=== PATIENT | male | born 1985 | race Caucasian/White ===

== ENCOUNTER 2023-11-05 10:09 | Emergency (ER) | payer BC, MEDICAID ==
[~2023-11-05] VITALS: Ht 175.3 cm; Wt 70.3 kg
[2023-11-05 10:15] VITALS: BP 119/85; PULSE 92; RESP 16; TEMP 98; O2SAT 97
[2023-11-05 10:48] LABS: BASOPHILS % (AUTO) 1.1 % (0.0-2.0); EOSINOPHILS # (AUTO) 0.1 K/uL (0-0.4); EOSINOPHILS % (AUTO) 2.3 % (0.0-4.0); HEMATOCRIT 37.9 % (36-52); HEMOGLOBIN 12.3 g/dL (12.0-18.0); LYMPHOCYTES # (AUTO) 1.5 K/uL (2.0-11.5); MEAN CORPUSCULAR HEMOGLOBIN 31 pg (27-31); MEAN CORPUSCULAR HGB CONC 33 g/dL (33-37); MONOCYTES # (AUTO) 0.3 K/uL (0.8-1.0); MONOCYTES % (AUTO) 9.6 % (1.7-9.3); NEUTROPHILS # (AUTO) 1.1 K/uL (1.8-7.7); PLATELET COUNT (AUTO) 122 K/uL (140-450); RED BLOOD CELL COUNT(AUTO) 4.03 MIL/uL (4.20-6.10); RED CELL DISTRIBUTION WIDTH 15.8 % (11.6-13.7)
[2023-11-05 11:07] LABS: ANION GAP 10.1 (8-16); CALCIUM 9.1 mg/dL (8.5-10.1); CREATININE 0.8 mg/dL (0.6-1.3); POTASSIUM 4.1 mmol/L (3.5-5.1)
[2023-11-05 11:12] LABS: ALBUMIN 3.4 g/dL (3.4-5.0); BILIRUBIN,DIRECT 0.1 mg/dL (0.0-0.3); TOTAL BILIRUBIN 0.2 mg/dL (0.0-1.0); TOTAL PROTEIN, SERUM 7.8 g/dL (6.4-8.2)
[2023-11-05 11:29] LABS: APPEARANCE,URINE CLEAR (CLEAR); BILIRUBIN,URINE NEGATIVE (NEGATIVE); BLOOD, URINE NEGATIVE (NEGATIVE); COLOR,URINE YELLOW (YELLOW); LEUKOCYTE ESTERASE ,URINE NEGATIVE (NEGATIVE); NITRITE, URINE NEGATIVE (NEGATIVE); PH,URINE 7.5 (5.0-9.0); PROTEIN,URINE NEGATIVE (NEGATIVE); UGLUCOSE NEGATIVE (NEGATIVE); UROBILINOGEN,URINE 0.2 EU/dL (0.2 - 1)
[2023-11-05 12:09] VITALS: BP 129/93; PULSE 79; RESP 17; O2SAT 97
== END 2023-11-05 12:12 | disposition home or self-care (01) ==
LOC: MED 10:09
DX: R53.1 Weakness (principal); R05.9 Cough, unspecified; I10 Essential (primary) hypertension; Z86.69 Personal history of other diseases of the nervous system and sense organs
CPT/HCPCS: 36415; 71045; 80048; 80076; 81003; 85025; 99284; Q0092

== ENCOUNTER 2023-11-23 09:38 | Emergency (ER) | payer BC ==
[~2023-11-23] VITALS: Ht 172.7 cm; Wt 77.1 kg
[2023-11-23 09:47] VITALS: BP 144/96; PULSE 112; RESP 15; TEMP 97.9; O2SAT 97
[2023-11-23 12:24] VITALS: BP 134/97; PULSE 90; RESP 15; TEMP 97.9; O2SAT 99
== END 2023-11-23 12:24 | disposition home or self-care (01) ==
LOC: MED 09:38
DX: S09.90XA Unspecified injury of head, initial encounter (principal); I10 Essential (primary) hypertension; Z86.69 Personal history of other diseases of the nervous system and sense organs; W17.89XA Other fall from one level to another, initial encounter; Y93.89 Activity, other specified; Y92.89 Other specified places as the place of occurrence of the external cause; Y99.8 Other external cause status
CPT/HCPCS: 70450; 99284

== ENCOUNTER 2023-12-16 10:42 | Inpatient (IN) | payer BC ==
[~2023-12-16] VITALS: Ht 175.3 cm; Wt 77.3 kg
[2023-12-16] VITALS (9 sets, daily range): BP systolic 7–136; BP diastolic 37–87; PULSE 74–109; RESP 15–20; TEMP 98.5; O2SAT 88–100
[2023-12-16 11:45] LABS: BASOPHILS % (AUTO) 0.3 % (0.0-2.0); EOSINOPHILS % (AUTO) 0.8 % (0.0-4.0); HEMATOCRIT 39.9 % (36-52); HEMOGLOBIN 13.1 g/dL (12.0-18.0); LYMPHOCYTES # (AUTO) 1.2 K/uL (2.0-11.5); LYMPHOCYTES % (AUTO) 22.5 % (20.5-51.1); MEAN CORPUSCULAR HEMOGLOBIN 31 pg (27-31); MEAN CORPUSCULAR HGB CONC 33 g/dL (33-37); MEAN CORPUSCULAR VOLUME 93.3 fL (80-94); MONOCYTES # (AUTO) 0.6 K/uL (0.8-1.0); MONOCYTES % (AUTO) 11.3 % (1.7-9.3); NEUTROPHILS # (AUTO) 3.6 K/uL (1.8-7.7); NEUTROPHILS % (AUTO) 65.1 % (42.2-75.2); PLATELET COUNT (AUTO) 112 K/uL (140-450); RED BLOOD CELL COUNT(AUTO) 4.27 MIL/uL (4.20-6.10); RED CELL DISTRIBUTION WIDTH 15.1 % (11.6-13.7); WHITE BLOOD COUNT (AUTO) 5.5 K/uL (4.8-10.8)
[2023-12-16 12:16] LABS: BLOOD GAS PCO2 83.6 mmHg (35.0-48.0); BLOOD GAS PH 7.296 (7.350-7.450)
[2023-12-16 12:17] LABS: BLOOD GAS BASE EXCESS 9.9 mmol/L (-2.0-3.0); BLOOD GAS HCO3 39.8 mmol/L (21.0-28.0); BLOOD GAS O2 SAT% 93.8 % (94.0-98.0); BLOOD GAS PO2 78.6 mmHg (83.0-108.0)
[2023-12-16 12:19] LABS: ALANINE AMINOTRANSFERASE 37 U/L (12-78); ALBUMIN 3.1 g/dL (3.4-5.0); ALKALINE PHOSPHATASE 72 U/L (50-136); ANION GAP 6.7 (8-16); ASPARTATE AMINOTRANSFERASE 20 U/L (15-37); CALCIUM 9.1 mg/dL (8.5-10.1); CARBON DIOXIDE 36.7 mmol/L (21-32); CHLORIDE 95 mmol/L (98-107); CREATININE 0.6 mg/dL (0.6-1.3); GFR ARICAN-AMERICAN 194 mL/min (>90); GFR NON ARICAN-AMERICAN 160 mL/min (>90); GLUCOSE 92 mg/dL (74-106); POTASSIUM 4.4 mmol/L (3.5-5.1); SODIUM SERUM 134 mmol/L (136-145); TOTAL BILIRUBIN 0.3 mg/dL (0.0-1.0); TOTAL PROTEIN, SERUM 7.6 g/dL (6.4-8.2); UREA NITROGEN, BLOOD 7 mg/dL (7-18)
[2023-12-16] MEDS: ALBUTEROL SULFATE/IPRATROPIU 3 ML SOL IH ONE (16:45)
[2023-12-16] MEDS: LORazepam 2 MG/ML VIAL IM ONE (17:14)
[2023-12-16] MEDS: LORazepam 2 MG/ML VIAL IVP ONE ×2 (17:27→17:35)
[2023-12-16] MEDS ORDERED: INTUBATION KIT MC ONE (17:41)
[2023-12-16] MEDS: VANCOMYCIN 1,000 MG in DEXTROSE 5% 250 ML IV ONE (18:05)
[2023-12-16] MEDS: ROCURONIUM 50 MG/5 ML VIAL IV ONE (18:10)
[2023-12-16] MEDS: ETOMIDATE 20 MG/10 ML VIAL IVP ONE (18:11)
[2023-12-16] MEDS: NACL 0.9% 1,000 ML IV ONE (18:12)
[2023-12-16] MEDS ORDERED: POTASSIUM CHLORIDE 10 MEQ TABER PO PRN (18:25)
[2023-12-16] MEDS ORDERED: KCL 20 MEQ IN 100 mL PREMIX 200 ML IV PRN (18:25)
[2023-12-16] MEDS ORDERED: ONDANSETRON 4 MG/2 ML VIAL IVP PRN (18:25)
[2023-12-16] MEDS ORDERED: ACETAMINOPHEN 325 MG TAB PO PRN (18:25)
[2023-12-16] MEDS ORDERED: HYDROcodone/APAP 5/325 MG 1 TAB TAB PO PRN (18:25)
[2023-12-16] MEDS: DEXMEDETOMIDINE HCL 400 MCG in NACL 0.9% 96 ML IV STA (18:32)
[2023-12-16] MEDS ORDERED: QUET100T PO (19:17)
[2023-12-16] MEDS ORDERED: KEP500 PO (19:17)
[2023-12-16] MEDS ORDERED: SYN.1 PO (19:17)
[2023-12-16] MEDS ORDERED: OMEP20EC11 PO (19:17)
[2023-12-16] MEDS ORDERED: DIVA125E1 (19:17)
[2023-12-16] MEDS ORDERED: PIPERACILLIN/TAZOBACTAM 4.5 GM VIAL IV ONE (19:23)
[2023-12-16] MEDS: PIPERACILLIN/TAZOBACTAM 4.5 GM in DEXTROSE 5% 100 ML IV ONE (19:25)
[2023-12-16] MEDS ORDERED: BENA20TA PO (19:28)
[2023-12-16] MEDS ORDERED: AZITHROMYCIN 500 MG INJ VIAL IV ONE (19:59)
[2023-12-16] MEDS: NACL 0.9% 1,000 ML IV SCH (20:02)
[2023-12-16] MEDS: AZITHROMYCIN 500 MG in DEXTROSE 5% 250 ML IV ONE (20:20)
[2023-12-16] MEDS ORDERED: AZITHROMYCIN 500 MG in DEXTROSE 5% 250 ML IV SCH (21:00)
[2023-12-16 21:19] LABS: BLOOD GAS PH 7.465 (7.350-7.450)
[2023-12-16 21:20] LABS: BLOOD GAS BASE EXCESS 9.7 mmol/L (-2.0-3.0); BLOOD GAS PCO2 49.8 mmHg (35.0-48.0); BLOOD GAS PO2 53.7 mmHg (83.0-108.0)
[2023-12-16 21:21] LABS: BLOOD GAS O2 SAT% 88.1 % (94.0-98.0)
[2023-12-16] MEDS ORDERED: COMMUNICATION ORDER MC PRN (21:55)
[2023-12-16] MEDS: VANCOMYCIN 1,000 MG VIAL ONE (22:09)
[2023-12-16] MEDS: cefTRIAXone 1,000 MG VIAL ONE (22:20)
[2023-12-16] MEDS: MIDAZOLAM MDV 50 MG/10 ML VIAL IV ONE (23:43)
[2023-12-17] VITALS (32 sets, daily range): BP systolic 85–174; BP diastolic 53–112; PULSE 48–110; RESP 15–16; TEMP 92–97.6; O2SAT 96–100
[2023-12-17] MEDS: ALBUTEROL SULFATE/IPRATROPIU 3 ML SOL IH SCH (00:28)
[2023-12-17] MEDS: MIDAZOLAM MDV 50 MG in NACL 0.9% 40 ML IV PRN (01:40)
[2023-12-17] MEDS: DEXMEDETOMIDINE HCL 100 MCG/ML 2 ML VIAL IV ONE (03:44)
[2023-12-17] MEDS: DEXMEDETOMIDINE HCL 400 MCG in NACL 0.9% 96 ML IV PRN (03:53)
[2023-12-17 05:43] LABS: BASOPHILS % (AUTO) 0.2 % (0.0-2.0); EOSINOPHILS % (AUTO) 0.1 % (0.0-4.0); HEMATOCRIT 35.7 % (36-52); HEMOGLOBIN 11.7 g/dL (12.0-18.0); LYMPHOCYTES # (AUTO) 0.7 K/uL (2.0-11.5); LYMPHOCYTES % (AUTO) 9.3 % (20.5-51.1); MEAN CORPUSCULAR HEMOGLOBIN 30 pg (27-31); MEAN CORPUSCULAR HGB CONC 33 g/dL (33-37); MEAN CORPUSCULAR VOLUME 92.2 fL (80-94); MONOCYTES # (AUTO) 0.7 K/uL (0.8-1.0); MONOCYTES % (AUTO) 8.5 % (1.7-9.3); NEUTROPHILS # (AUTO) 6.4 K/uL (1.8-7.7); NEUTROPHILS % (AUTO) 81.9 % (42.2-75.2); PLATELET COUNT (AUTO) 109 K/uL (140-450); RED BLOOD CELL COUNT(AUTO) 3.87 MIL/uL (4.20-6.10); RED CELL DISTRIBUTION WIDTH 15.1 % (11.6-13.7); WHITE BLOOD COUNT (AUTO) 7.8 K/uL (4.8-10.8)
[2023-12-17 06:11] LABS: ANION GAP 8.1 (8-16); CALCIUM 8.9 mg/dL (8.5-10.1); CARBON DIOXIDE 31.8 mmol/L (21-32); CREATININE 0.6 mg/dL (0.6-1.3); POTASSIUM 3.9 mmol/L (3.5-5.1)
[2023-12-17] MEDS: LEVOTHYROXINE 0.1 MG TAB PO SCH (06:21)
[2023-12-17 06:24] LABS: MAGNESIUM 1.5 mg/dL (1.8-2.4); PHOSPHORUS 2.4 mg/dL (2.5-4.9)
[2023-12-17] MEDS: MAG SULF 2000 MG/WATER PREMIX 50 ML IV PRN (06:48)
[2023-12-17] MEDS ORDERED: DIVALPROEX SPRINKLES 125 MG CAPDR NG/PO SCH (07:00)
[2023-12-17] MEDS: QUEtiapine FUMARATE 100 MG TAB PO SCH (08:50)
[2023-12-17] MEDS: levETIRAcetam 500 MG TAB PO SCH (08:50)
[2023-12-17] MEDS: PANTOPRAZOLE 40 MG TABEC PO SCH (08:51)
[2023-12-17] MEDS: DIVALPROEX SPRINKLES 125 MG CAPDR NG/PO SCH (08:53)
[2023-12-17] MEDS ORDERED: NON-FORMULARY ITEM (Omeprazole* (Prilosec*) 20 MG) PO SCH (09:00)
[2023-12-17] MEDS ORDERED: ENOXAPARIN 40 MG/0.4 ML SYR SUBQ SCH (09:00)
[2023-12-17] MEDS ORDERED: NACL IV SCH (12:00)
[2023-12-17] MEDS ORDERED: POTASSIUM PHOSPHATE IV SCH (12:00)
[2023-12-17] MEDS: POTASSIUM PHOSPHATE 15 MM in NACL 0.9% 250 ML IV SCH (13:19)
[2023-12-17] MEDS ORDERED: ALBUTEROL SULFATE/IPRATROPIU 3 ML SOL IH PRN (16:00)
[2023-12-17] MEDS: AZITHROMYCIN 500 MG in DEXTROSE 5% 250 ML IV SCH (21:01)
[2023-12-18] VITALS (33 sets, daily range): BP systolic 84–126; BP diastolic 47–88; PULSE 46–111; RESP 12–19; TEMP 95.4–98.2; O2SAT 94–100
[2023-12-18] MEDS: MORPHINE SULFATE 4 MG/ML SYR IVP PRN (01:48)
[2023-12-18] MEDS: DEXMEDETOMIDINE HCL 100 MCG/ML 2 ML VIAL IV ONE (03:44)
[2023-12-18 05:13] LABS: BASOPHILS % (AUTO) 0.2 % (0.0-2.0); EOSINOPHILS % (AUTO) 0.2 % (0.0-4.0); HEMATOCRIT 33.7 % (36-52); LYMPHOCYTES # (AUTO) 0.5 K/uL (2.0-11.5); LYMPHOCYTES % (AUTO) 7.2 % (20.5-51.1); MEAN CORPUSCULAR HEMOGLOBIN 30 pg (27-31); MEAN CORPUSCULAR HGB CONC 33 g/dL (33-37); MEAN CORPUSCULAR VOLUME 91.6 fL (80-94); MONOCYTES # (AUTO) 0.5 K/uL (0.8-1.0); MONOCYTES % (AUTO) 7.2 % (1.7-9.3); NEUTROPHILS # (AUTO) 5.4 K/uL (1.8-7.7); NEUTROPHILS % (AUTO) 85.2 % (42.2-75.2); PLATELET COUNT (AUTO) 123 K/uL (140-450); RED BLOOD CELL COUNT(AUTO) 3.67 MIL/uL (4.20-6.10); RED CELL DISTRIBUTION WIDTH 15.1 % (11.6-13.7); WHITE BLOOD COUNT (AUTO) 6.3 K/uL (4.8-10.8)
[2023-12-18 05:47] LABS: ANION GAP 8.7 (8-16); CALCIUM 8.7 mg/dL (8.5-10.1); CARBON DIOXIDE 30.3 mmol/L (21-32); CREATININE 0.7 mg/dL (0.6-1.3)
[2023-12-18 06:00] LABS: MAGNESIUM 1.7 mg/dL (1.8-2.4); PHOSPHORUS 4.3 mg/dL (2.5-4.9)
[2023-12-18] MEDS: levETIRAcetam 100 MG/ML ORASYR GT SCH (20:09)
[2023-12-18] MEDS: MAGNESIUM OXIDE 400 MG TAB PO PRN (21:04)
[2023-12-19] VITALS (33 sets, daily range): BP systolic 95–133; BP diastolic 56–86; PULSE 73–119; RESP 13–23; TEMP 96.5–99.2; O2SAT 94–100
[2023-12-19 05:18] LABS: BASOPHILS % (AUTO) 0.2 % (0.0-2.0); EOSINOPHILS % (AUTO) 0.7 % (0.0-4.0); HEMATOCRIT 32.2 % (36-52); HEMOGLOBIN 10.8 g/dL (12.0-18.0); LYMPHOCYTES # (AUTO) 0.9 K/uL (2.0-11.5); LYMPHOCYTES % (AUTO) 16.5 % (20.5-51.1); MEAN CORPUSCULAR HEMOGLOBIN 31 pg (27-31); MEAN CORPUSCULAR HGB CONC 34 g/dL (33-37); MEAN CORPUSCULAR VOLUME 91.3 fL (80-94); MONOCYTES # (AUTO) 0.5 K/uL (0.8-1.0); MONOCYTES % (AUTO) 9.6 % (1.7-9.3); NEUTROPHILS # (AUTO) 3.8 K/uL (1.8-7.7); PLATELET COUNT (AUTO) 128 K/uL (140-450); RED BLOOD CELL COUNT(AUTO) 3.52 MIL/uL (4.20-6.10); RED CELL DISTRIBUTION WIDTH 15.2 % (11.6-13.7); WHITE BLOOD COUNT (AUTO) 5.2 K/uL (4.8-10.8)
[2023-12-19 05:26] LABS: ANION GAP 12.3 (8-16); CALCIUM 8.5 mg/dL (8.5-10.1); CARBON DIOXIDE 27.4 mmol/L (21-32); CREATININE 0.7 mg/dL (0.6-1.3); POTASSIUM 3.7 mmol/L (3.5-5.1)
[2023-12-19 05:58] LABS: MAGNESIUM 1.5 mg/dL (1.8-2.4)
[2023-12-19 05:59] LABS: PHOSPHORUS 3.2 mg/dL (2.5-4.9)
[2023-12-19] MEDS: PANTOPRAZOLE 40 MG INJ VIAL IVP SCH (08:54)
[2023-12-19] MEDS: DEXMEDETOMIDINE HCL 400 MCG in NACL 0.9% 96 ML IV PRN (10:06)
[2023-12-19 15:46] LABS: BLOOD GAS BASE EXCESS 3.8 mmol/L (-2.0-3.0); BLOOD GAS HCO3 28.5 mmol/L (21.0-28.0); BLOOD GAS O2 SAT% 97.5 % (94.0-98.0); BLOOD GAS PCO2 43.9 mmHg (35.0-48.0); BLOOD GAS PH 7.431 (7.350-7.450); BLOOD GAS PO2 95.5 mmHg (83.0-108.0)
[2023-12-19] MEDS: POTASSIUM CHLORIDE 20% 40 MEQ/15 ML UDC NG SCH (16:21)
[2023-12-20] VITALS (32 sets, daily range): BP systolic 97–132; BP diastolic 53–85; PULSE 78–107; RESP 13–27; TEMP 97.7–99; O2SAT 95–100
[2023-12-20 05:15] LABS: BASOPHILS % (AUTO) 0.5 % (0.0-2.0); EOSINOPHILS % (AUTO) 0.4 % (0.0-4.0); HEMOGLOBIN 10.9 g/dL (12.0-18.0); LYMPHOCYTES # (AUTO) 1.2 K/uL (2.0-11.5); MEAN CORPUSCULAR HEMOGLOBIN 31 pg (27-31); MEAN CORPUSCULAR HGB CONC 34 g/dL (33-37); MEAN CORPUSCULAR VOLUME 91.7 fL (80-94); MONOCYTES # (AUTO) 0.8 K/uL (0.8-1.0); NEUTROPHILS # (AUTO) 5.3 K/uL (1.8-7.7); NEUTROPHILS % (AUTO) 72.1 % (42.2-75.2); PLATELET COUNT (AUTO) 147 K/uL (140-450); RED BLOOD CELL COUNT(AUTO) 3.48 MIL/uL (4.20-6.10); RED CELL DISTRIBUTION WIDTH 15.3 % (11.6-13.7); WHITE BLOOD COUNT (AUTO) 7.4 K/uL (4.8-10.8)
[2023-12-20 05:21] LABS: ANION GAP 8.9 (8-16); CALCIUM 8.7 mg/dL (8.5-10.1); CARBON DIOXIDE 29.1 mmol/L (21-32); CREATININE 0.8 mg/dL (0.6-1.3)
[2023-12-20 05:27] LABS: MAGNESIUM 1.7 mg/dL (1.8-2.4); PHOSPHORUS 3.6 mg/dL (2.5-4.9)
[2023-12-20 11:29] LABS: BLOOD GAS PH 7.439 (7.350-7.450)
[2023-12-20 11:30] LABS: BLOOD GAS PCO2 43.7 mmHg (35.0-48.0)
[2023-12-20 11:31] LABS: BLOOD GAS PO2 100.8 mmHg (83.0-108.0)
[2023-12-20 11:33] LABS: BLOOD GAS BASE EXCESS 4.3 mmol/L (-2.0-3.0); BLOOD GAS HCO3 28.9 mmol/L (21.0-28.0); BLOOD GAS O2 SAT% 97.9 % (94.0-98.0)
[2023-12-21] VITALS (33 sets, daily range): BP systolic 89–157; BP diastolic 43–92; PULSE 83–130; RESP 12–26; TEMP 97.4–98.2; O2SAT 86–100
[2023-12-21 05:52] LABS: ANION GAP 8.3 (8-16); CALCIUM 9.5 mg/dL (8.5-10.1); CARBON DIOXIDE 33.1 mmol/L (21-32); CREATININE 0.7 mg/dL (0.6-1.3); POTASSIUM 4.4 mmol/L (3.5-5.1)
[2023-12-21 06:29] LABS: MAGNESIUM 1.6 mg/dL (1.8-2.4); PHOSPHORUS 5.4 mg/dL (2.5-4.9)
[2023-12-21 06:39] LABS: BASOPHILS % (AUTO) 0.5 % (0.0-2.0); EOSINOPHILS # (AUTO) 0.1 K/uL (0-0.4); EOSINOPHILS % (AUTO) 1.2 % (0.0-4.0); HEMATOCRIT 36.8 % (36-52); HEMOGLOBIN 12.2 g/dL (12.0-18.0); LYMPHOCYTES # (AUTO) 1.5 K/uL (2.0-11.5); MEAN CORPUSCULAR HEMOGLOBIN 31 pg (27-31); MEAN CORPUSCULAR HGB CONC 33 g/dL (33-37); MEAN CORPUSCULAR VOLUME 92.5 fL (80-94); MONOCYTES # (AUTO) 0.8 K/uL (0.8-1.0); MONOCYTES % (AUTO) 8.9 % (1.7-9.3); NEUTROPHILS # (AUTO) 6.4 K/uL (1.8-7.7); NEUTROPHILS % (AUTO) 72.4 % (42.2-75.2); PLATELET COUNT (AUTO) 175 K/uL (140-450); RED BLOOD CELL COUNT(AUTO) 3.98 MIL/uL (4.20-6.10); RED CELL DISTRIBUTION WIDTH 15.4 % (11.6-13.7); WHITE BLOOD COUNT (AUTO) 8.8 K/uL (4.8-10.8)
[2023-12-21] MEDS: ETOMIDATE 20 MG/10 ML VIAL IVP ONE (13:08)
[2023-12-21] MEDS: ROCURONIUM 50 MG/5 ML VIAL IV ONE (13:09)
[2023-12-21 13:45] LABS: BLOOD GAS PCO2 141.7 mmHg (35.0-48.0); BLOOD GAS PH 7.079 (7.350-7.450); BLOOD GAS PO2 70.6 mmHg (83.0-108.0)
[2023-12-21 13:46] LABS: BLOOD GAS BASE EXCESS 5.9 mmol/L (-2.0-3.0)
[2023-12-21 15:35] LABS: BLOOD GAS PCO2 41.8 mmHg (35.0-48.0); BLOOD GAS PH 7.472 (7.350-7.450)
[2023-12-21 15:36] LABS: BLOOD GAS BASE EXCESS 5.7 mmol/L (-2.0-3.0); BLOOD GAS HCO3 29.9 mmol/L (21.0-28.0); BLOOD GAS O2 SAT% 99.5 % (94.0-98.0)
[2023-12-21 15:37] LABS: BLOOD GAS PO2 168.2 mmHg (83.0-108.0)
[2023-12-21] MEDS: MAG SULF 2000 MG/WATER PREMIX 50 ML IV PRN (15:54)
[2023-12-21] MEDS: ALBUTEROL SULFATE/IPRATROPIU 3 ML SOL IH SCH (17:37)
[2023-12-21] MEDS ORDERED: HYDRAGUARD CREAM TP PRN (19:45)
[2023-12-21] MEDS: QUEtiapine FUMARATE 100 MG TAB PO SCH (20:10)
[2023-12-21] MEDS ORDERED: NOREPINEPHRINE 4 MG in DEXTROSE 5% 250 ML IV PRN (21:20)
[2023-12-21] MEDS: NACL 0.9% 500 ML IV ONE (21:44)
[2023-12-22] VITALS (32 sets, daily range): BP systolic 85–158; BP diastolic 44–102; PULSE 77–113; RESP 15–31; TEMP 97.4–99; O2SAT 92–100
[2023-12-22 05:11] LABS: BASOPHILS % (AUTO) 0.3 % (0.0-2.0); EOSINOPHILS % (AUTO) 0.5 % (0.0-4.0); HEMATOCRIT 34.2 % (36-52); HEMOGLOBIN 11.2 g/dL (12.0-18.0); LYMPHOCYTES # (AUTO) 2.1 K/uL (2.0-11.5); LYMPHOCYTES % (AUTO) 28.4 % (20.5-51.1); MEAN CORPUSCULAR HEMOGLOBIN 30 pg (27-31); MEAN CORPUSCULAR HGB CONC 33 g/dL (33-37); MEAN CORPUSCULAR VOLUME 92.3 fL (80-94); MONOCYTES # (AUTO) 0.8 K/uL (0.8-1.0); NEUTROPHILS # (AUTO) 4.5 K/uL (1.8-7.7); NEUTROPHILS % (AUTO) 59.8 % (42.2-75.2); PLATELET COUNT (AUTO) 180 K/uL (140-450); RED CELL DISTRIBUTION WIDTH 15.4 % (11.6-13.7); WHITE BLOOD COUNT (AUTO) 7.4 K/uL (4.8-10.8)
[2023-12-22 05:30] LABS: ANION GAP 12.6 (8-16); CALCIUM 9.5 mg/dL (8.5-10.1); CARBON DIOXIDE 30.5 mmol/L (21-32); CREATININE 1.2 mg/dL (0.6-1.3); POTASSIUM 3.1 mmol/L (3.5-5.1)
[2023-12-22 05:37] LABS: MAGNESIUM 2.3 mg/dL (1.8-2.4); PHOSPHORUS 1.5 mg/dL (2.5-4.9)
[2023-12-22] MEDS: POTASSIUM PHOSPHATE 15 MM in NACL 0.9% 250 ML IV SCH (11:17)
[2023-12-22] MEDS: LORazepam 2 MG/ML VIAL IVP PRN (17:09)
== END 2023-12-22 22:37 | disposition short-term general hospital (02) | DRG 133 ==
LOC: MED 10:42 → MTU 18:26 → MIC 20:52
PROVIDERS: ADMIT Hospitalist; ATTEND Hospitalist
PROC: 5A0935A Assistance with Respiratory Ventilation, Less than 24 Consecutive Hours, High Flow/Velocity Cannula (ICD-10-PCS; principal; 2023-12-16)
PROC: 5A1945Z Respiratory Ventilation, 24-96 Consecutive Hours (ICD-10-PCS; 2023-12-16)
PROC: 0BH17EZ Insertion of Endotracheal Airway into Trachea, Via Natural or Artificial Opening (ICD-10-PCS; 2023-12-16)
PROC: 5A1945Z Respiratory Ventilation, 24-96 Consecutive Hours (ICD-10-PCS; 2023-12-21)
PROC: 0BH17EZ Insertion of Endotracheal Airway into Trachea, Via Natural or Artificial Opening (ICD-10-PCS; 2023-12-21)
DX: J96.02 Acute respiratory failure with hypercapnia (principal); J15.9 Unspecified bacterial pneumonia; E44.0 Moderate protein-calorie malnutrition; J96.01 Acute respiratory failure with hypoxia; G80.9 Cerebral palsy, unspecified; G40.909 Epilepsy, unspecified, not intractable, without status epilepticus; Z20.822 Contact with and (suspected) exposure to COVID-19; K21.9 Gastro-esophageal reflux disease without esophagitis; F31.9 Bipolar disorder, unspecified; I10 Essential (primary) hypertension; E03.9 Hypothyroidism, unspecified; Z79.899 Other long term (current) drug therapy; Z68.25 Body mass index [BMI] 25.0-25.9, adult
CPT/HCPCS: 31500; 36415; 36600; 70450; 71045; 74018; 80048; 80053; 82140; 82803; 83735; 84100; 84443; 84484; 85025; 85379; 87070; 87081; 87086; 87205; 93005; 94002; 94003; 94640; 94664; 96365; 96367; 97163-GP; 97530; 99291; 99292; J0456; J0696; J1644; J2060; J2250; J2270; J2470; J2543; J3370; J3475; J3490; J7030; J7060; Q0092